=== PATIENT | female | born 1950 | race Caucasian/White ===

== ENCOUNTER 2019-09-01 21:04 | Inpatient (IN) | payer OTHER ==
[~2019-09-01] VITALS: Ht 162.6 cm; Wt 57.6 kg
[~2019-09-01 21:04] MED LIST: ACETAMINOPHEN650 M5 PO; ALBUTEROL2.5 MG/0.1 INH; LEVAQUIN 500 M500 M7 PO; NICOTINE TRANSD14 M1 TD; ORADENT 0.1% DEN5 G1 TOP; PREDNISONE 10 M10 MG PO
[2019-09-01 21:10] VITALS: BP 122/46
[2019-09-01] MEDS ORDERED: SPIRIVA RESPIMAT4 G1 (21:18)
[2019-09-01] MEDS ORDERED: ALBUTEROL2.5 MG/3 M INH (21:19)
[2019-09-01 21:30] LABS: ABSOLUTE LYMPHOCYTES 0.7 thou/uL (0.8-5.3); ABSOLUTE MONOCYTES 0.8 thou/uL (0.0-1.2); ABSOLUTE NEUTROPHILS 5.6 thou/uL (1.6-8.1); BASOPHILS 0.4 %; EOSINOPHILS 0.3 %; HEMATOCRIT 36.3 % (37.0-47.0); HEMOGLOBIN 12.2 gm/dL (12.0-15.0); LYMPHOCYTES 9.1 %; MCH 30.8 pg (26.0-34.0); MCHC 33.4 g/dL (28.0-37.0); MONOCYTES 11.8 %; MPV 6.2 fl. (7.2-11.1); NUCLEATED RBCS 0 /100WBC; PLATELET COUNT* 487 thou/uL (150-400); POLYS 78.4 %; RBC 3.95 mil/uL (4.20-5.00); RDW-CV 13.8 % (10.5-14.5); WBC 7.2 thou/uL (4.0-11.0)
[2019-09-01 21:40] LABS: INR 1.2; PROTIME 12.2 Seconds (9.20-11.50)
[2019-09-01 21:41] LABS: ANION GAP < 0 mmol/L (7-16); BUN 8 mg/dL (7-18); CALCIUM 9.1 mg/dL (8.5-10.1); CHLORIDE 91 mmol/L (98-107); CO2 41 mmol/L (21-32); CREATININE 0.3 mg/dL (0.6-1.3); GLUCOSE 87 mg/dL (70-99); SODIUM 130 mmol/L (136-145)
[2019-09-01 21:51] LABS: ALBUMIN 2.9 g/dL (3.4-5.0); ALKALINE PHOSPHATASE 254 U/L (46-116); LIPASE 1178 U/L (73-393); NT-PRO BRAIN NAT PEPTIDE 231 pg/mL (<300); SGOT 200 U/L (15-37); SGPT 38 U/L (30-65); TOTAL PROTEIN 6.8 g/dL (6.4-8.2)
[2019-09-02 01:10] VITALS: BP 95/58
[2019-09-02 01:45] LABS: URINE BLOOD 2+ (Negative); URINE CLARITY CLEAR; URINE COLOR DARK YELLOW; URINE GLUCOSE-RANDOM NEGATIVE (Negative); URINE KETONES NEGATIVE (Negative); URINE LEUKOCYTES-REFLEX NEGATIVE (Negative); URINE NITRITE-REFLEX NEGATIVE (Negative); URINE PROTEIN NEGATIVE (Negative)
[2019-09-02 01:46] LABS: URINE BILIRUBIN 1+ (Negative)
[2019-09-02 01:48] LABS: ICTOTEST (BILI CONFIRMATORY) Positive (Negative)
[2019-09-02 01:58] LABS: CASTS None Seen /LPF (None Seen); SQUAMOUS 4-10 Moderate /LPF (0-3)
[2019-09-02 01:59] LABS: BACTERIA-REFLEX 1-9 Few /HPF (None Seen); URINE WBC-REFLEX 0-5 Rare /HPF (0-5)
[2019-09-02 02:00] LABS: AMORPHOUS URATES Moderate /LPF (None Seen); URINE RBC 0-2 Rare /HPF (0-2)
[2019-09-02 08:12] VITALS: BP 118/53
[2019-09-02 11:19] LABS: AMP/METHAMP Negative (Negative); BARBITURATES Negative (Negative); BENZODIAZEPINES Negative (Negative); COCAINE Negative (Negative); METHADONE Negative (Negative); OPIATES Negative (Negative); PCP Negative (Negative); THC Negative (Negative)
[2019-09-02 12:00] VITALS: BP 111/62
[2019-09-02 14:47] LABS: CALCIUM 9.1 mg/dL (8.5-10.1); CREATININE 0.4 mg/dL (0.6-1.3); POTASSIUM 5.1 mmol/L (3.5-5.1)
--- NOTE | 2019-09-02 15:27 | EKG ---
[place] [address] ELECTROCARDIOGRAM REPORT Name: RINKU KAT Room: [address] ADM IN [facility].#: [id number] Admission: 09/01/19 Attend Phys: Alma Delia Hardy, Discharge: Date of : 52 Date of Service: 09/01/19 2157 Report #: [id number] THIS REPORT FOR: //name// [facility] ED Test Date: 2019-09-01 Test Time: 21:57:53 Pat Name: RINKU KAT Department: Room: [facility] Gender: F Clinical Resource Manager: BAN : 1950 Requested By: Emy Amor Order Number: [id number] MD: Severo Duenas Measurements Intervals [place] Rate: 126 P: 132 OK: 121 QRS: 0 QRSD: 50 T: QT: 300 QTc: 435 Interpretive Statements Sinus tachycardia Low voltage throughout Probable anterior infarct, age indeterminate Compared to ECG 07/09/2013 14:08:32 There is now low voltage throughout Electronically Signed On 09-02-2019 15:26:47 CDT by Severo Duenas [email or web address] <ELECTRONICALLY SIGNED> By: Severo Duenas MD, FAC 09/02/19 1526 2157 2157 Severo Duenas MD, FAC /EPI
[2019-09-02 16:00] VITALS: BP 112/62
--- NOTE | 2019-09-02 16:13 | 2DMMODE ---
[place] [address] 2 D/M-MODE ECHOCARDIOGRAM Name: RINKU KTA Room: [address] IN .R.#: [id number] Admission: 09/01/19 Attend Phys: Alma Delia Hardy, Discharge: Date of : 52 Date of Service: 09/02/19 1612 Report #: [id number] THIS REPORT FOR: cc: Aleisha Calix MD, Elizabeth MD Liston, Michael J. MD [facility] ~ APPROVED REPORT Study performed: 09/02/2019 10:10:33 EXAM: Comprehensive 2D, Doppler, and color-flow Echocardiogram Patient Location: In-Patient BSA: 1.61 HR: 109 bpm BP: 118/53 mmHg Other Information Study Quality: Good Indications Dyspnea 2D Dimensions IVSd: 9.41 (7-11mm) LVOT Diam: 20.26 (18-24mm) LVDd: 41.30 mm PWd: 9.52 (7-11mm) Ascending Ao: 25.79 (22-36mm) LVDs: 34.06 (25-40mm) Aortic Root: 23.86 mm Volumes Left Atrial Volume (Systole) LA ESV Index: 16.70 mL/m2 Aortic Valve AoV Peak Sb.: 1.17 m/s AO Peak Gr.: 5.43 mmHg LVOT Max P.07 mmHg AO Mean Gr.: 3.00 mmHg LVOT Mean P.97 mmHg LVOT Max V: 1.01 m/s AO V2 VTI: 19.47 cm LVOT Mean V: 0.64 m/s REED (VTI): 2.90 cm2 LVOT V1 VTI: 17.51 cm Mitral Valve E/A Ratio: 1.17 [place] [address] 2 D/M-MODE ECHOCARDIOGRAM Name: RINKU KAT Room: [address] IN .R.#: [id number] Admission: 09/01/19 Attend Phys: Alma Delia Hardy, Discharge: Date of : 52 Date of Service: 09/02/19 1612 Report #: [id number] MV Decel. Time: 130.53 ms MV E Max Sb.: 0.61 m/s MV PHT: 37.85 ms MVA (PHT): 5.81 cm2 TDI E/Lateral E': 12.20 E/Medial E': 6.10 Medial E' Sb.: 0.10 m/s Lateral E' Sb.: 0.05 m/s Pulmonary Valve PV Peak Sb.: 0.91 m/s PV Peak Gr.: 3.28 mmHg Tricuspid Valve RAP Estimate: 5.00 mmHg TR Peak Gr.: 29.27 mmHg RVSP: 34.27 mmHg PA Pressure: 34.27 mmHg Left Ventricle The left ventricle is normal size. There is normal LV segmental wall motion. There is normal left ventricular wall thickness. Left ventricular systolic function is normal. LVEF is 65-70%. Transmitral Doppler flow pattern suggests impaired LV relaxation. Right Ventricle The right ventricle is normal size. The right ventricular systolic function is normal. Atria The left atrium size is normal. The right atrium size is normal. Aortic Valve The aortic valve is normal in structure. No aortic regurgitation is present. There is no aortic valvular stenosis. Mitral Valve The mitral valve is normal in structure. Trace mitral regurgitation. No evidence of mitral valve stenosis. Tricuspid Valve The tricuspid valve is normal in structure. Trace tricuspid regurgitation. Pulmonic Valve The pulmonary valve is normal in structure[place] [address] 2 D/M-MODE ECHOCARDIOGRAM Name: NORTHRINKU Lemons Room: [address] IN [facility]#: [id number] Admission: 09/01/19 Attend Phys: Alma Delia Hardy, Discharge: Date of : 52 Date of Service: 09/02/19 1612 Report #: [id number] regurgitation. Great Vessels The aortic root is normal in size. IVC is normal in size and collapses >50% with inspiration. Pericardium Mild circumferential pericardial effusion. No echo indications of pericardial tamponade. <Conclusion> The left ventricle is normal size. There is normal left ventricular wall thickness. Left ventricular systolic function is normal. LVEF is 65-70%. Transmitral Doppler flow pattern suggests impaired LV relaxation. Trace mitral regurgitation. Trace tricuspid regurgitation. IVC is normal in size and collapses >50% with inspiration. Mild circumferential pericardial effusion. No echo indications of pericardial tamponade. <ELECTRONICALLY SIGNED> By: Severo Duenas MD, FACC 09/02/19 161 11 11 Severo Duenas MD, FACC /INF
[2019-09-02 16:31] LABS: BF RBC 27159 /mm3; TOTAL CELL COUNT 185 /mm3
[2019-09-02 16:36] LABS: BE 10.7 mmol/L (-2 to +3); PO2 95.2 mmHg (75.0-100.0)
[2019-09-02 16:39] LABS: PCO2 86.3 mmHg (35.0-45.0); pH 7.293 (7.340-7.450)
[2019-09-02 16:45] LABS: CLARITY CLOUDY; TOTAL VOLUME 1060 ml
[2019-09-02 17:06] LABS: BF LYMPHOCYTES 69 %; BF MONOCYTES 12 %; BF POLYS 19 %; BF TISSUE 3 /100 WBC
[2019-09-02 22:00] VITALS: BP 109/56
[2019-09-03] VITALS: BP 104/61
[2019-09-03 04:00] VITALS: BP 115/70
[2019-09-03 05:36] LABS: HEMATOCRIT 32.9 % (37.0-47.0); MCH 31.5 pg (26.0-34.0); MCHC 33.6 g/dL (28.0-37.0); MCV 93.9 fL (80.0-100.0); MPV 6.7 fl. (7.2-11.1); NUCLEATED RBCS 0 /100WBC; PLATELET COUNT* 467 thou/uL (150-400); RDW-CV 14.3 % (10.5-14.5); WBC 4.5 thou/uL (4.0-11.0)
[2019-09-03 05:53] LABS: PHOSPHORUS* 3.3 mg/dL (2.5-4.9)
[2019-09-03 05:56] LABS: ALBUMIN 2.7 g/dL (3.4-5.0); CALCIUM 9.2 mg/dL (8.5-10.1); CREATININE 0.5 mg/dL (0.6-1.3); POTASSIUM 5.4 mmol/L (3.5-5.1); TOTAL BILIRUBIN 0.7 mg/dL (<0.1-1.0); TOTAL PROTEIN 5.8 g/dL (6.4-8.2)
[2019-09-03 06:02] LABS: ABSOLUTE LYMPHOCYTES 0.3 thou/uL (0.8-5.3); ABSOLUTE MONOCYTES 0.1 thou/uL (0.0-1.2); ABSOLUTE NEUTROPHILS 4.1 thou/uL (1.6-8.1)
[2019-09-03 06:03] LABS: ANISOCYTOSIS 1+; PLATELET ESTIMATE INCREASED; POIKILOCYTOSIS 1+
[2019-09-03 09:05] VITALS: BP 100/53
[2019-09-03 09:13] LABS: BE 11.4 mmol/L (-2 to +3); pH 7.366 (7.340-7.450)
[2019-09-03 09:16] LABS: PCO2 70.4 mmHg (35.0-45.0); PO2 59.5 mmHg (75.0-100.0)
[2019-09-03 12:17] VITALS: BP 137/77
[2019-09-03 16:07] LABS: BODY FLUID LDH 568 IU/L (()); BODY FLUID PROTEIN 2.2 g/dL (())
[2019-09-03 17:21] VITALS: BP 116/69
[2019-09-03 20:03] VITALS: BP 117/65
[2019-09-04] VITALS: BP 105/55
[2019-09-04 04:00] VITALS: BP 115/64
[2019-09-04 05:45] LABS: ANION GAP < 0 mmol/L (7-16); BUN 15 mg/dL (7-18); CALCIUM 8.7 mg/dL (8.5-10.1); CHLORIDE 96 mmol/L (98-107); CO2 40 mmol/L (21-32); CREATININE 0.5 mg/dL (0.6-1.3); GLUCOSE 123 mg/dL (70-99); POTASSIUM 4.4 mmol/L (3.5-5.1); SODIUM 134 mmol/L (136-145)
[2019-09-04 08:00] VITALS: BP 109/42
[2019-09-04 12:00] VITALS: BP 113/63
[2019-09-04 16:00] VITALS: BP 150/85
--- NOTE | 2019-09-04 17:08 | PATH ---
[address] [address] PATHOLOGY RPT PROCEDURE Name: RINKU KAT Room: [address] IN [facility]#: [id number] Admission: 09/01/19 Date of : 52 Discharge: Report #: [id number] Path Case #: [id number] Note [facility] Accession Number: [id number] TESTS RESULT FLAG UNITS REF RANGE LAB Clinician Provided Cytology Information No. of containers..01 Other (Miscellaneous) Source: RIGHT PLEURAL DIAGNOSIS: 02 RIGHT PLEURAL INCONCLUSIVE-RARE, ISOLATED ATYPICAL CELLS OF UNCERTAIN ETIOLOGY IN BACKGROUND OF RED BLOOD CELLS AND FEW INFLAMMATORY CELLS. THIS INTERPRETATION INCLUDES EVALUATION OF A CELL BLOCK. Signed out by: 02 Laurent Olivas MD, Pathologist NPI- [id number] Performed by: 01 Nazanin Wolf, Clinical Application Manager ([facility]) Gross description: 01 60 ML, CLOUDY ORANGE, 1 TP 1 CB /LCS 09/04/2019 1153 Local FLAG LEGEND: L-Low Normal,H-High Normal,LL-Alert Low,HH-Alert High <-Panic Low,>-Panic High,A-Abnormal,AA-Critical Abnormal Performed at: [address] [place] [address] Gabriel Lanza MD, [address] [place] [phone] Laurent Olivas MD, Specimen Comment: A courtesy copy of this report has been sent to [phone] Specimen Comment: [phone], Specimen Comment: Report sent to Specimen Comment: Report sent to ,DR ABEBE / DR KUMARI Performed at: [address], [place], [place] [id number] MD Gabriel Lanza MD Phone: [phone]
[2019-09-04 20:00] VITALS: BP 150/77
[2019-09-04 23:07] LABS: BODY FLUID PH 7.6 (Not Estab.)
[2019-09-05] VITALS (7 sets, daily range): BP systolic 94–131; BP diastolic 41–72
[2019-09-05 04:53] LABS: ABSOLUTE LYMPHOCYTES 0.2 thou/uL (0.8-5.3); ABSOLUTE MONOCYTES 0.7 thou/uL (0.0-1.2); ABSOLUTE NEUTROPHILS 7.4 thou/uL (1.6-8.1); BASOPHILS 0.1 %; HEMATOCRIT 33.4 % (37.0-47.0); HEMOGLOBIN 11.1 gm/dL (12.0-15.0); LYMPHOCYTES 2.5 %; MCH 31.2 pg (26.0-34.0); MCHC 33.3 g/dL (28.0-37.0); MONOCYTES 8.8 %; MPV 6.6 fl. (7.2-11.1); NUCLEATED RBCS 0 /100WBC; PLATELET COUNT* 404 thou/uL (150-400); POLYS 88.6 %; RBC 3.56 mil/uL (4.20-5.00); RDW-CV 14.1 % (10.5-14.5); WBC 8.4 thou/uL (4.0-11.0)
[2019-09-05 05:08] LABS: ANION GAP < 0 mmol/L (7-16); BUN 13 mg/dL (7-18); CALCIUM 8.8 mg/dL (8.5-10.1); CHLORIDE 96 mmol/L (98-107); CO2 41 mmol/L (21-32); CREATININE 0.3 mg/dL (0.6-1.3); GLUCOSE 125 mg/dL (70-99); MAGNESIUM 1.9 mg/dL (1.8-2.4); POTASSIUM 4.7 mmol/L (3.5-5.1); SODIUM 135 mmol/L (136-145)
[2019-09-05 11:08] LABS: % SATURATION 16 % (20-39); IRON 36 ug/dL (50-175)
[2019-09-06] VITALS: BP 118/67
[2019-09-06 04:00] VITALS: BP 131/82
[2019-09-06 04:18] LABS: ABSOLUTE LYMPHOCYTES 0.2 thou/uL (0.8-5.3); ABSOLUTE MONOCYTES 0.7 thou/uL (0.0-1.2); ABSOLUTE NEUTROPHILS 7.9 thou/uL (1.6-8.1); BASOPHILS 0.1 %; HEMATOCRIT 33.5 % (37.0-47.0); HEMOGLOBIN 11.1 gm/dL (12.0-15.0); LYMPHOCYTES 2.2 %; MCH 31.4 pg (26.0-34.0); MCHC 33.2 g/dL (28.0-37.0); MCV 94.6 fL (80.0-100.0); MONOCYTES 8.1 %; MPV 6.5 fl. (7.2-11.1); NUCLEATED RBCS 0 /100WBC; PLATELET COUNT* 364 thou/uL (150-400); POLYS 89.6 %; RBC 3.54 mil/uL (4.20-5.00); RDW-CV 14.5 % (10.5-14.5); WBC 8.8 thou/uL (4.0-11.0)
[2019-09-06 04:52] LABS: PHOSPHORUS* 3.6 mg/dL (2.5-4.9)
[2019-09-06 04:55] LABS: ALBUMIN 2.6 g/dL (3.4-5.0); ALKALINE PHOSPHATASE 227 U/L (46-116); ANION GAP < 0 mmol/L (7-16); BUN 14 mg/dL (7-18); CALCIUM 9.2 mg/dL (8.5-10.1); CHLORIDE 95 mmol/L (98-107); CO2 41 mmol/L (21-32); CREATININE 0.4 mg/dL (0.6-1.3); GLUCOSE 118 mg/dL (70-99); SGOT 177 U/L (15-37); SGPT 41 U/L (30-65); SODIUM 135 mmol/L (136-145); TOTAL BILIRUBIN 0.5 mg/dL (<0.1-1.0); TOTAL PROTEIN 5.8 g/dL (6.4-8.2)
[2019-09-06 08:00] VITALS: BP 105/56
[2019-09-06 12:10] VITALS: BP 118/60
[2019-09-06 14:07] LABS: BODY FLUID LDH 393 IU/L (()); BODY FLUID PROTEIN 1.3 g/dL (())
[2019-09-06 16:50] VITALS: BP 125/76
[2019-09-06 20:00] VITALS: BP 140/72
[2019-09-07] VITALS: BP 131/74
[2019-09-07 04:00] VITALS: BP 140/60
[2019-09-07 04:20] LABS: HEMATOCRIT 33.6 % (37.0-47.0); MCH 31.1 pg (26.0-34.0); MCHC 32.8 g/dL (28.0-37.0); MCV 94.7 fL (80.0-100.0); RBC 3.55 mil/uL (4.20-5.00); RDW-CV 14.5 % (10.5-14.5); WBC 8.3 thou/uL (4.0-11.0)
[2019-09-07 04:38] LABS: ALBUMIN 2.6 g/dL (3.4-5.0); CALCIUM 9.1 mg/dL (8.5-10.1); CREATININE 0.4 mg/dL (0.6-1.3); POTASSIUM 4.9 mmol/L (3.5-5.1); TOTAL BILIRUBIN 0.5 mg/dL (<0.1-1.0); TOTAL PROTEIN 5.7 g/dL (6.4-8.2)
[2019-09-07 08:00] VITALS: BP 106/39
[2019-09-07 12:20] VITALS: BP 130/66
[2019-09-07 16:02] LABS: SOURCE PLEURAL
[2019-09-07 16:02] LABS: SOURCE PLEURAL
[2019-09-07 16:03] VITALS: BP 144/73
[2019-09-07 20:00] VITALS: BP 115/52
--- NOTE | 2019-09-07 21:46 | CON ---
[address] [address] CONSULTATION Name: PRAKASHCELSARINKU Room: [address] IN .R.#: [id number] Admission: 09/01/19 Attend Phys: Alma Delia Hardy MD Discharge: Date of : 52 Report #: [id number] THIS REPORT FOR: //name// cc: Aleisha Calix MD, Elizabeth MD ~ THIS REPORT FOR: //name// CC: Aleisha Hardy DATE OF SERVICE: 09/02/2019 REQUESTING PHYSICIAN: Consult has been requested by Dr. Hardy. INDICATION FOR CONSULTATION: Shortness of breath and pleural effusion. HISTORY OF PRESENT ILLNESS: This is a 69-year-old female who has a history of oxygen-dependent COPD. The patient has not been on long-term prednisone. The patient also has not been on a long-term positive airway pressure device. She does have an extensive history of smoking. The patient is now admitted with increasing shortness of breath for the last 1 week. She also reports having had a dry cough, but there is not much sputum production. The patient does report that she has been constipated. While the patient did complain that she had swelling of her feet as described below, it is my impression that she is not dehydrated. The patient did complain of nausea and has had significant constipation recently. She does not have calf pain. She has not had fever, chills, or sweats. She is not complaining of heartburn at this time. The patient does state that she is bloated, she is weak, she has been losing weight and she has had a poor appetite. REVIEW OF SYSTEMS: For 14 points is negative except as mentioned above. PAST MEDICAL AND SURGICAL HISTORY: COPD, the patient is oxygen dependent, has not been on a long-term positive airway pressure device, has not been on long-term prednisone. Rectal surgery, tonsillectomy, D and C. There is mention of vein surgery on bilateral lower extremities, likely this refers to varicose veins. There is a questionable history of congestive heart failure. SOCIAL HISTORY: She has an extensive history of smoking 1-2 packs a day. She says that she smoked for several decades and discontinued around 8 or 9 months ago. There is no known history of heavy alcohol use or illegal drug use. CURRENT MEDICATIONS: The list is in [employer], reviewed. HOME MEDICATIONS: The list is in [employer], [place] [address] CONSULTATION Name: RINKU KAT Room: [address]#: [id number] Admission: 09/01/19 Attend Phys: Alma Delia Hardy MD Discharge: Date of : 52 Report #: [id number] ALLERGIES: CODEINE AND PROPOXYPHENE ARE MENTIONED ALLERGIES. FAMILY HISTORY: Cancer and heart disease. PHYSICAL EXAMINATION: GENERAL: She is alert, awake, and oriented. She does appear to have shortness of breath at rest, even though respiratory rate was only around 20. VITAL SIGNS: She has a pulse of 109 and a blood pressure of 111/62. She is oxygenating 97%. She is on 4 liters nasal cannula. She is afebrile with a temperature of 36.4 this morning. Her body mass index is decreased to 21.8. HEENT: Head is normocephalic and atraumatic. Pupils are equal and reactive. There is no throat erythema. There is no thrush in her throat. NECK: Does not show raised JVP, asymmetry, mass, or lymph nodes. CHEST: Symmetrical expansion on inspection and palpation. On auscultation, breath sounds are decreased bilaterally. Breath sounds are in fact particularly decreased at the right lung base. HEART: Regular. There is mild tachycardia. There is no murmur. ABDOMEN: Mildly distended, but nontender. EXTREMITIES: Lower extremities showed no edema, no calf tenderness. SKIN: Dry and intact. NEUROLOGICAL: Moves all extremities bilaterally equally and spontaneously with no focal deficit identified. IMAGING: The patient's CTA chest films as well as report are reviewed. I in fact called and discussed with Dr. Houser, the radiologist, as well. There is a loculated pleural effusion on the right side. There is associated atelectasis and pulmonary infiltrates on the right side. There is an enlarged thyroid mass, which is deviating the trachea. There is significant lymphadenopathy on the right side noted. There are no masses in the liver. CT of the abdomen and pelvis report is also reviewed. The patient does have a small pleural effusion on the left side as well. Also, there are findings consistent with significant COPD on the CT chest. LABORATORY DATA: The patient's chemistries are significant from last night for a BUN decreased to 8. Sodium is 130. Lipase is elevated to 1178. The patient's CBC also in [facility], reviewed. The patient's lactate is not elevated, it is 1.4. The patient did have a TSH level performed this morning. I requested a basic metabolic profile added to this. This is pending at this time. ASSESSMENT/PLAN: 1. Acute on chronic hypoxemic respiratory failure. The patient's bicarbonate is elevated to 41 from last night. Therefore, I suspect that there may be significant hypercarbia present as well. I would therefore recommend proceeding to an arterial blood gas to evaluate this further and also to assess the extent of the acute component. Unfortunately, the findings on her CAT scans are [facility] [address] [place] [address] CONSULTATION Name: MICHAEL KATBehzad Lemons Room: [address] IN M.R.#: [id number] Admission: 09/01/19 Attend Phys: Alma Delia Hardy MD Discharge: Date of : 52 Report #: [id number] suspicious of a widespread malignancy. The etiology of the patient's deterioration during the last 1 week, however, does need to be defined further. It will be possible for the patient to have pneumonia in the right lower lobe. The possibility of COVID-19 also does need to be ruled out for this reason. 2. Loculated pleural effusion/hepatic masses/thyroid mass. Unfortunately, the findings are consistent with a widespread malignancy. The hospitalist service has ordered a thoracentesis today. I agree with proceeding with the same. Down the line if it is possible to drain this pleural effusion via thoracentesis, then we may consider a PleurX catheter as well. In case the cytology on the pleural fluid does not lead to a definite diagnosis, then we may need additional tissue for a definite diagnosis. While a bronchoscopy with an endobronchial ultrasound could subsequently be considered, at first glance it appears to me that it may be a lower risk to the patient to biopsy one of her liver masses and therefore down the line I intend to discuss this with the Interventional Radiology service. Also, we will plan to review with Interventional Radiology and consider biopsy of the thyroid mass. This should be relatively easy to biopsy with ultrasound; however, this may be a separate process and not related to her suspected widespread malignancy. For now, I will go ahead and obtain a thyroid ultrasound. 3. Chronic obstructive pulmonary disease exacerbation. I ordered Solu-Medrol as well as nebulized bronchodilators. 4. Pulmonary infiltrate with atelectasis/rule out COVID-19. Ordered cultures as well as ceftriaxone. COVID-19 screen and MRSA screen are also ordered. Also requested isolation until COVID-19 screen is back. 5. Hyponatremia. It is possible that the patient has underlying syndrome of inappropriate antidiuretic hormone secretion secondary to her underlying malignancy, which is for this reason that even though I do not feel that she is dehydrated, I in fact did not change the order for normal saline. It is, however, noted that due to her severe chronic obstructive pulmonary disease, the patient is likely to have limited tolerance to fluid overload and therefore we will watch her fluid status closely and if she becomes fluid overloaded, then we will have a low tendency to also administer furosemide at the same time. I would also like to look at the right heart pressures as well as the left ventricular ejection fraction and it is for this reason that I have ordered an echocardiogram as well. 6. Evaluation for site of primary malignancy. The Hematology/Oncology service is also on the case. Note that the patient does have a large thyroid mass; however, it is possible that this is a separate process. Certainly, there could be a mass in the right hilum. The patient does have a history of constipation and therefore the possibility of colon malignancy also needs to be considered. 7. Pancreatitis/elevated lipase. We would defer followup mainly to the primary service. Therapy may be primarily supportive. [address] [address] CONSULTATION Name: RINKU KAT Room: [facility] IN [facility].#: [id number] Admission: 09/01/19 Attend Phys: Alma Delia Hardy MD Discharge: Date of : 52 Report #: [id number] Thanks for this consultation. <ELECTRONICALLY SIGNED> By: Nito Lopez MD 09/07/19 2146 1454 1919Aotto Lopez MD /nt
[2019-09-08] VITALS: BP 129/57
[2019-09-08 04:00] VITALS: BP 125/74
[2019-09-08 05:56] LABS: HEMATOCRIT 35.1 % (37.0-47.0); HEMOGLOBIN 11.5 gm/dL (12.0-15.0); MCH 30.8 pg (26.0-34.0); MCHC 32.7 g/dL (28.0-37.0); MCV 94.1 fL (80.0-100.0); MPV 7.3 fl. (7.2-11.1); NUCLEATED RBCS 0 /100WBC; PLATELET COUNT* 342 thou/uL (150-400); RBC 3.73 mil/uL (4.20-5.00); RDW-CV 14.7 % (10.5-14.5); WBC 8.8 thou/uL (4.0-11.0)
[2019-09-08 06:11] LABS: PHOSPHORUS* 3.7 mg/dL (2.5-4.9)
[2019-09-08 06:14] LABS: ALBUMIN 2.6 g/dL (3.4-5.0); ALKALINE PHOSPHATASE 246 U/L (46-116); ANION GAP < 0 mmol/L (7-16); BUN 15 mg/dL (7-18); CALCIUM 8.9 mg/dL (8.5-10.1); CHLORIDE 94 mmol/L (98-107); CO2 43 mmol/L (21-32); CREATININE 0.3 mg/dL (0.6-1.3); GLUCOSE 93 mg/dL (70-99); MAGNESIUM 2.3 mg/dL (1.8-2.4); POTASSIUM 5.4 mmol/L (3.5-5.1); SGOT 251 U/L (15-37); SGPT 54 U/L (30-65); SODIUM 135 mmol/L (136-145); TOTAL BILIRUBIN 0.6 mg/dL (<0.1-1.0); TOTAL PROTEIN 5.7 g/dL (6.4-8.2)
[2019-09-08 07:19] LABS: ABSOLUTE LYMPHOCYTES 0.4 thou/uL (0.8-5.3); ABSOLUTE MONOCYTES 0.4 thou/uL (0.0-1.2); METAMYELOCYTES 2 %; MYELOCYTES 1 %; PLATELET ESTIMATE ADEQUATE
[2019-09-08 08:00] VITALS: BP 105/69
[2019-09-08 10:28] LABS: BE 16.8 mmol/L (-2 to +3); PO2 68.4 mmHg (75.0-100.0); pH 7.387 (7.340-7.450)
[2019-09-08 10:33] LABS: PCO2 77.6 mmHg (35.0-45.0)
[2019-09-08 12:00] VITALS: BP 112/62
[2019-09-08 16:00] VITALS: BP 108/48
[2019-09-08 20:00] VITALS: BP 143/64
[2019-09-09] VITALS (7 sets, daily range): BP systolic 98–130; BP diastolic 36–76
[2019-09-09 07:17] LABS: ABSOLUTE LYMPHOCYTES 0.3 thou/uL (0.8-5.3); ABSOLUTE MONOCYTES 0.8 thou/uL (0.0-1.2); ABSOLUTE NEUTROPHILS 9.7 thou/uL (1.6-8.1); BASOPHILS 0.2 %; HEMATOCRIT 35.4 % (37.0-47.0); HEMOGLOBIN 11.6 gm/dL (12.0-15.0); LYMPHOCYTES 2.6 %; MCH 30.7 pg (26.0-34.0); MCHC 32.6 g/dL (28.0-37.0); MCV 94.1 fL (80.0-100.0); MONOCYTES 7.1 %; MPV 7.4 fl. (7.2-11.1); NUCLEATED RBCS 0 /100WBC; PLATELET COUNT* 355 thou/uL (150-400); POLYS 90.1 %; RBC 3.76 mil/uL (4.20-5.00); RDW-CV 14.7 % (10.5-14.5); WBC 10.8 thou/uL (4.0-11.0)
[2019-09-09 08:05] LABS: ALBUMIN 2.5 g/dL (3.4-5.0); ALKALINE PHOSPHATASE 228 U/L (46-116); BUN 20 mg/dL (7-18); CALCIUM 9.3 mg/dL (8.5-10.1); CHLORIDE 93 mmol/L (98-107); CREATININE 0.4 mg/dL (0.6-1.3); GLUCOSE 111 mg/dL (70-99); MAGNESIUM 2.2 mg/dL (1.8-2.4); SGOT 192 U/L (15-37); SGPT 55 U/L (30-65); SODIUM 136 mmol/L (136-145); TOTAL BILIRUBIN 0.7 mg/dL (<0.1-1.0); TOTAL PROTEIN 5.7 g/dL (6.4-8.2)
[2019-09-09 08:06] LABS: POTASSIUM 4.2 mmol/L (3.5-5.1)
[2019-09-09 08:08] LABS: CO2 > 45 mmol/L (21-32)
[2019-09-10] VITALS (24 sets, daily range): BP systolic 89–123; BP diastolic 24–63
[2019-09-10 04:53] LABS: HEMATOCRIT 36.5 % (37.0-47.0); HEMOGLOBIN 11.7 gm/dL (12.0-15.0); MCH 30.6 pg (26.0-34.0); MCHC 32.2 g/dL (28.0-37.0); MCV 95.1 fL (80.0-100.0); MPV 7.4 fl. (7.2-11.1); RBC 3.84 mil/uL (4.20-5.00); RDW-CV 14.7 % (10.5-14.5); WBC 12.1 thou/uL (4.0-11.0)
[2019-09-10 05:16] LABS: ALBUMIN 2.7 g/dL (3.4-5.0); CALCIUM 9.3 mg/dL (8.5-10.1); CREATININE 0.5 mg/dL (0.6-1.3); MAGNESIUM 2.3 mg/dL (1.8-2.4); POTASSIUM 4.3 mmol/L (3.5-5.1); TOTAL BILIRUBIN 0.6 mg/dL (<0.1-1.0); TOTAL PROTEIN 5.9 g/dL (6.4-8.2)
[2019-09-10 08:17] LABS: BE 17.9 mmol/L (-2 to +3); PO2 61.6 mmHg (75.0-100.0); pH 7.363 (7.340-7.450)
[2019-09-10 08:19] LABS: PCO2 85.4 mmHg (35.0-45.0)
[2019-09-10 12:30] LABS: ABSOLUTE LYMPHOCYTES 0.2 thou/uL (0.8-5.3); ABSOLUTE MONOCYTES 0.7 thou/uL (0.0-1.2); ABSOLUTE NEUTROPHILS 11.6 thou/uL (1.6-8.1); BASOPHILS 0.2 %; EOSINOPHILS 0.2 %; HEMATOCRIT 36.7 % (37.0-47.0); HEMOGLOBIN 11.9 gm/dL (12.0-15.0); LYMPHOCYTES 1.2 %; MCH 30.8 pg (26.0-34.0); MCHC 32.5 g/dL (28.0-37.0); MCV 94.7 fL (80.0-100.0); MONOCYTES 5.6 %; MPV 7.4 fl. (7.2-11.1); NUCLEATED RBCS 0 /100WBC; PLATELET COUNT* 320 thou/uL (150-400); POLYS 92.8 %; RBC 3.87 mil/uL (4.20-5.00); RDW-CV 14.9 % (10.5-14.5); WBC 12.5 thou/uL (4.0-11.0)
[2019-09-10 12:46] LABS: ALBUMIN 2.6 g/dL (3.4-5.0); ALKALINE PHOSPHATASE 241 U/L (46-116); BUN 26 mg/dL (7-18); CALCIUM 9.5 mg/dL (8.5-10.1); CHLORIDE 95 mmol/L (98-107); CREATININE 0.5 mg/dL (0.6-1.3); GLUCOSE 112 mg/dL (70-99); LIPASE 897 U/L (73-393); MAGNESIUM 2.3 mg/dL (1.8-2.4); PHOSPHORUS* 3.6 mg/dL (2.5-4.9); POTASSIUM 4.4 mmol/L (3.5-5.1); SGOT 189 U/L (15-37); SGPT 82 U/L (30-65); SODIUM 139 mmol/L (136-145); TOTAL BILIRUBIN 0.5 mg/dL (<0.1-1.0); TOTAL PROTEIN 5.9 g/dL (6.4-8.2)
[2019-09-10 12:47] LABS: CO2 > 45 mmol/L (21-32)
--- NOTE | 2019-09-10 13:08 | PATH ---
[address] [address] PATHOLOGY RPT PROCEDURE Name: RINKU KAT Room: [address] IN [facility]#: [id number] Admission: 09/01/19 Date of : 52 Discharge: Report #: [id number] Path Case #: [id number] Note [facility] Accession Number: [id number] TESTS RESULT FLAG UNITS REF RANGE LAB Clinician Provided Cytology Information No. of containers..01 Other (Miscellaneous) Source: RT PLEURAL FLUID DIAGNOSIS: RT PLEURAL FLUID INCONCLUSIVE. RARE ATYPICAL CELLS, SUSPICIOUS FOR MALIGNANCY WITH BACKGROUND OF REACTIVE MESOTHELIAL CELLS AND BLOOD. CELLULAR DEGENERATION IS PRESENT. SEE COMMENT. THIS INTERPRETATION INCLUDES EVALUATION OF A CELL BLOCK. COMMENT: SIMILAR RARE ATYPICAL CELLS ARE SEEN, SIMILAR TO THOSE EVALUATED WITH IHC IN THE RECENT PRIOR PLEURAL FLUID, [id number]. Signed out by: 02 Laurent Olivas MD, Pathologist NPI- [id number] Performed by: 01 Toya Cai, Explosive Operator ([facility]) Gross description: 01 45ML, CLOUDY RED, 1TP 1CB /LCS 09/08/2019 0528 Local FLAG LEGEND: L-Low Normal,H-High Normal,LL-Alert Low,HH-Alert High <-Panic Low,>-Panic High,A-Abnormal,AA-Critical Abnormal Performed at: [address] [address] Gabriel Lanza MD, [address] [place] [address] [address] [place] [address] Laurent Olivas MD, Specimen Comment: A courtesy copy of this report has been sent to [phone] Specimen Comment: [phone] Specimen Comment: Report sent to / DR KUMARI Specimen Comment: Report sent to Performed at: [address], [place], [place] [id number] MD Gabriel Lanza MD Phone: [phone]
--- NOTE | 2019-09-10 13:08 | PATH ---
[address] [address] PATHOLOGY RPT PROCEDURE Name: RINKU KAT Room: [address] IN [facility]#: [id number] Admission: 09/01/19 Date of : 52 Discharge: Report #: [id number] Path Case #: [id number] Note [facility] Accession Number: [id number] TESTS RESULT FLAG UNITS REF RANGE LAB Clinician Provided Cytology Information No. of containers..01 Other (Miscellaneous) Source: PLEURAL FLUID DIAGNOSIS: 02 PLEURAL FLUID (SIDE NOT SPECIFIED). INCONCLUSIVE - FEW GENERALLY ISOLATED ATYPICAL CELLS SUSPICIOUS FOR MALIGNANCY IN BACKGROUND OF BLOOD AND FEW INFLAMMATORY CELLS. SEE COMMENT. THIS INTERPRETATION INCLUDES EVALUATION OF A CELL BLOCK. COMMENT: SIMILAR TO THE RECENT PRIOR PLEURAL FLUID ([id number]), A FEW ATYPICAL CELLS ARE PRESENT IN SLIGHTLY GREATER NUMBERS, GENERALLY SEEN SINGLY AND RARELY IN AGGREGATION. AVAILABLE, VALIDATED PROPERLY CONTROLLED IMMUNOHISTOCHEMICAL STUDIES ARE PERFORMED ON THE CELL BLOCK AND SHOW THE FOLLOWING RESULTS IN THE ATYPICAL CELLS: TTF-1: NUCLEAR POSITIVE CK5/6: NEGATIVE; HIGHLIGHTS MESOTHELIAL CELLS CHROMOGRANIN: NEGATIVE SYNAPTOPHYSIN: POSITIVE AE1/AE3: RARE POSITIVE; ALSO HIGHLIGHTS MESOTHELIAL CELLS CAUTION IS WARRANTED IN INTERPRETATION OF THESE FINDINGS DUE TO THE VERY FEW ATYPICAL CELLS PRESENT. THE FINDINGS OF A LARGE RIGHT THYROID MASS, LARGE RIGHT PARATRACHEAL MASS AND MULTIPLE LESIONS IN THE LIVER ON CT CHEST WITH CONTRAST DATED 09/07/2019 ARE NOTED. THE ATYPICAL CELLS AND IN PARTICULAR WITH THE IMMUNOHISTOCHEMICAL STUDIES RAISE A CONCERN FOR BRONCHOGENIC SMALL CELL OR THYROID MALIGNANCY. REVIEWED WITH DR. BRIDGETTE WILLIS, WHO AGREES WITH THE DIAGNOSIS. DISCUSSED PRELIMINARY FINDINGS WITH DR. VITAL ON AFTERNOON OF 09/09/[address] DEVONTE HOSKINS ON AM OF 09/10/2019. . Diagnosis provided b 02 Laurent Olivas MD, Pathologist NPI- [id number] Signed out by: 03 Laurent Olivas MD, Pathologist NPI- [id number] Performed by: 01 Nazanin Wolf, Hospital Clerk ([facility]) Gross description: 01 10ML, CLOUDY RED, 1TP 1CB /LCS 09/09/2019 1059 Local FLAG LEGEND: [place] [address] PATHOLOGY RPT PROCEDURE Name: MICHAEL KATBehzad Lemons Room: [address] IN .R.#: [id number] Admission: 09/01/19 Date of : 52 Discharge: Report #: [id number] Path Case #: [id number] L-Low Normal,H-High Normal,LL-Alert Low,HH-Alert High <-Panic Low,>-Panic High,A-Abnormal,AA-Critical Abnormal Performed at: [address] [place] [address] Gabriel Lanza MD, [address] [address] [place] [address] Laurent Olivas MD, 03 [facility] [address] [place] [address] Laurent Olivas MD, Specimen Comment: A courtesy copy of this report has been sent to [phone] Specimen Comment: Report sent to / DR YIN Performed at: [address], [place], [place] [id number] MD Gabriel Lanza MD Phone: [phone]
[2019-09-10 17:01] LABS: BE 17.1 mmol/L (-2 to +3); PO2 68.1 mmHg (75.0-100.0); pH 7.402 (7.340-7.450)
[2019-09-10 17:04] LABS: PCO2 74.5 mmHg (35.0-45.0)
[2019-09-11] VITALS (17 sets, daily range): BP systolic 53–114; BP diastolic 15–57
[2019-09-11 05:46] LABS: HEMATOCRIT 31.4 % (37.0-47.0); HEMOGLOBIN 10.3 gm/dL (12.0-15.0); MCH 31.2 pg (26.0-34.0); MCHC 32.7 g/dL (28.0-37.0); MCV 95.2 fL (80.0-100.0); MPV 7.2 fl. (7.2-11.1); NUCLEATED RBCS 0 /100WBC; PLATELET COUNT* 262 thou/uL (150-400); RDW-CV 14.5 % (10.5-14.5); WBC 9.9 thou/uL (4.0-11.0)
[2019-09-11 05:54] LABS: ALBUMIN 2.1 g/dL (3.4-5.0); ALKALINE PHOSPHATASE 178 U/L (46-116); ANION GAP < 0 mmol/L (7-16); BUN 24 mg/dL (7-18); CALCIUM 8.4 mg/dL (8.5-10.1); CHLORIDE 101 mmol/L (98-107); CO2 43 mmol/L (21-32); CREATININE 0.4 mg/dL (0.6-1.3); GLUCOSE 93 mg/dL (70-99); POTASSIUM 4.7 mmol/L (3.5-5.1); SGOT 190 U/L (15-37); SGPT 64 U/L (30-65); SODIUM 140 mmol/L (136-145); TOTAL BILIRUBIN 0.5 mg/dL (<0.1-1.0); TOTAL PROTEIN 4.6 g/dL (6.4-8.2)
[2019-09-11 06:23] LABS: ABSOLUTE LYMPHOCYTES 0.8 thou/uL (0.8-5.3); ABSOLUTE MONOCYTES 0.4 thou/uL (0.0-1.2); ABSOLUTE NEUTROPHILS 8.7 thou/uL (1.6-8.1); PLATELET ESTIMATE ADEQUATE
[2019-09-11 08:08] LABS: BE 9.9 mmol/L (-2 to +3)
[2019-09-11 08:10] LABS: PCO2 83.4 mmHg (35.0-45.0); PO2 49.6 mmHg (75.0-100.0)
--- NOTE | 2019-09-11 11:46 | CON ---
[address] [address] CONSULTATION Name: RINKU KAT Room: [address] IN .R.#: [id number] Admission: 09/01/19 Attend Phys: Alma Delia Hardy MD Discharge: Date of : 52 Report #: [id number] THIS REPORT FOR: //name// cc: Aleisha Calix MD, Elizabeth MD ~ THIS REPORT FOR: //name// CC: Aleisha Hardy DATE OF SERVICE: 09/10/2019 INFECTIOUS DISEASE CONSULTATION ATTENDING PHYSICIAN: Dr. Hardy. REASON FOR EVALUATION: Recommendations for antibiotic therapy. 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 HISTORY OF PRESENT ILLNESS: Chart reviewed, patient examined. This is a 69-year-old was admitted through the Emergency Room with complaints of progressive dyspnea. It is notable she is on supplemental oxygen normally due to history of chronic obstructive lung disease, has extended history of smoking cigarettes. The evaluation was undertaken including multiple images which showed what appeared to be a paratracheal mass, multiple lesions consistent with metastases in the chest as well as the abdomen, did undergo thoracentesis early on and now apparently suggests a small cell carcinoma, had developed a pneumothorax that required a chest tube placement on the right as well due to worsening respiratory situation. She is now on BiPAP. She is vjax-cf-lxxttmwiut encephalopathic. It is hard to redirect her. She just wants water ice chips, which at this point has been not available to her. She has been on empiric therapy including ceftriaxone for suspected pneumonitis, has had extensive culturing including the blood on a couple of occasions. Pleural fluid thus far have been unrevealing. Medications were adjusted, now on vancomycin and levofloxacin. She has not had any recent fevers. ALLERGIES: CODEINE, PROPOXYPHENE. CURRENT MEDICATIONS: Include vancomycin, lactulose, pantoprazole, methylprednisolone, ipratropium and albuterol inhaler, levalbuterol, insulin sliding scale, dexmedetomidine, levofloxacin. PAST MEDICAL HISTORY: As noted above, history of cardiomyopathy with congestive heart failure, O2 requiring COPD, previous tonsillect[place] [address] CONSULTATION Name: MARITAALEXRINKU Room: [address] IN [facility]#: [id number] Admission: 09/01/19 Attend Phys: Alma Delia Hardy MD Discharge: Date of : 52 Report #: [id number] SOCIAL HISTORY: Extensive smoking history. No significant ethanol or illicit drug use. FAMILY HISTORY: Noncontributory. REVIEW OF SYSTEMS: Minimal responses to specific questions. PHYSICAL EXAMINATION: GENERAL: She appears chronically ill, undernourished, in moderate to marked respiratory distress, has a BiPAP in place, who is chronically undernourished. VITAL SIGNS: Temperature 98.1, pulse 117, respirations 18, blood pressure 101/49. SKIN: Warm, dry, no rashes. HEENT: Appears to be supple. Extraocular muscles intact. BiPAP mask in place. LUNGS: Scattered coarse breath sounds, diminished. HEART: Tachycardic, appears to be regular. ABDOMEN: Appears to have a hard mass not particularly tender. GENITOURINARY AND RECTAL: Deferred. LABORATORY DATA: Electrolytes: Sodium 139, potassium 4.4, chloride 95, bicarbonate is greater than 45. Bun and creatinine 28 and 0.5, glucose of 112. AST of 189, ALT of 82. Total bilirubin of 0.5, lipase 897. CBC: White count of 12.5, H and H 11.9 and 36.7, platelets of 320. ABGs: pH 7.363, pCO2 of 85.4, pO2 of 61.6, pH of the pleural fluid was 7.6. Prealbumin 11.2. Review of the list of cultures was otherwise unrevealing. 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 She is critically ill at this point, it is not clear if she is a candidate for additional intervention from a Oncology standpoint. We will continue combination therapy at this point. Vancomycin, levofloxacin is a reasonable combination to see how she does clinically. At this point, she would deteriorate, may repeat cultures. At this point, it is not clear if she has got a focus of pyogenic infection. Discussed with Dr. Lopez as well as Dr. Berumen. <ELECTRONICALLY SIGNED> By: Juan Ramon Castillo MD 09/11/19 1146 1349 [id number] Ramon Castillo MD /nt
--- NOTE | 2019-09-11 17:07 | PATH ---
[address] [address] PATHOLOGY RPT PROCEDURE Name: TASHA KAT Room: [address] IN .R.#: [id number] Admission: 09/01/19 Date of : 52 Discharge: Report #: [id number] Path Case #: [id number] [facility] Accession Number: [id number] . 01 Material submitted: . liver - LIVER BIOPSY . 01 Clinical history: . Dyspnea, pleural effusion, mediastinal mass, hypon . 02 Diagnosis: Liver - necrotic mass, image-guided biopsy: - SMALL CELL CARCINOMA INVOLVING LIVER TISSUE. (SEE COMMENT) . (ANASTACIO:dawson; 09/11/2019) [facility] 09/11/2019 1020 Local . 02 Comment: The biopsy shows large aggregates of malignant small cells, without keratinization, terese formation or gland formation, having ovoid nuclei without nucleoli and with minimal cytoplasm. A panel of properly-controlled immunohistochemical studies performed on A1 show the neoplastic cells to have the following characteristics, supporting the classification: . TTF-1: Mostly negative-rare nuclear positive Synaptophysin: Positive Chromogranin: Negative CD56: Positive LCA: Negative CK7: Negative CK20: Negative Keratin AE1/AE3: Negative Keratin JUAN FRANCISCO: Positive . Although unable to confirm, the malignancy is compatible with a bronchogenic primary. . Reviewed with Dr. Luana Quinonez, who agrees with the diagnosis. . Preliminary findings discussed with Dr. Berumen at approximately 10:25 on 09/10/2019. . (ANASTACIO:mmcat; 09/11/2019) . 02 Electronically signed: . Laurent Olivas MD, [place] [address] PATHOLOGY RPT PROCEDURE Name: TASHA KAT Vesta Room: [address] IN [facility]#: [id number] Admission: 09/01/19 Date of : 52 Discharge: Report #: [id number] Path Case #: [id number]- [id number] . 01 Gross description: . The specimen is received in formalin, labeled "Tasha Kat, liver-necrotic mass" and consists of multiple fry needle cores measuring from 0.3-0.6 cm in length and 0.1 cm in diameter. They are entirely submitted in A1. (SLOAN; 09/09/2019) JFQ/JFQ 09/09/2019 1855 [facility] . 02 Pathologist provided ICD-10: C22.9 . 02 CPT . 944513, [id number], [id number] Specimen Comment: A courtesy copy of this report has been sent to [phone] Specimen Comment: [id number], Specimen Comment: Report sent to DR YIN, DR BARILLAS,DR ABEBE Specimen Comment: DR KUMARI Performed at: 01 [facility] [address], [place], [place] [id number] MD Gabriel Lanza MD Phone: [phone] Performed at: [address] [facility] [address] [place], [place] [id number] MD Laurent Olivas MD Phone: [phone]
[2019-09-12] VITALS: BP 96/54
[2019-09-12 02:00] VITALS: BP 87/39
[2019-09-12 04:00] VITALS: BP 87/17
--- NOTE | 2019-09-12 08:58 | CON ---
[address] [address] CONSULTATION Name: RINKU KAT Room: [address] IN [facility]#: [id number] Admission: 09/01/19 Attend Phys: Alma Delia Hardy MD Discharge: Date of : 52 Report #: [id number] THIS REPORT FOR: //name// cc: Aleisha Calix MD, Elizabeth MD ~ THIS REPORT FOR: //name// CC: Aleisha Hardy DATE OF SERVICE: 09/10/2019 SUBJECTIVE: She has complaints of shortness of breath. She is in ICU, but she is able to answer questions appropriately. She does not have complaints of pain. She admits that she has been losing weight. She had lost about 10 pounds over last month or 2. She has complaints of being thirsty. OBJECTIVE: VITAL SIGNS: Blood pressure 101/49, heart rate is 88, temperature 98.0, respirations 32. She is on BiPAP. HEART: Normal S1, S2. LUNGS: Coarse. ABDOMEN: Somewhat distended and tender diffusely. MENTAL STATUS: Alert and oriented x 3. LABORATORY DATA: Sodium 137, potassium 4.3, BUN 26, bicarbonate more than 32, creatinine 0.5, AST 189, ALT 241, alkaline phosphatase 241. Pathology reports, small cell lung cancer. ASSESSMENT AND PLAN: Extensive stage small cell lung cancer. I have discussed prognosis and options with the patient and her . I explained that she has aggressive lung cancer. Life expectancy prognosis is very poor. She is not a candidate for extensive chemotherapy, intensive chemotherapy. I discussed with her options of chemotherapy. If she wants to consider, we could definitely try. She does not want to chemotherapy if this is not "curable." Her had questions regarding "herbal therapy." She is not interesting to receive any chemotherapy. I explained that the prognosis for life expectancy is just a few weeks. I have suggested to consider hospice care and comfort care. They will think about it. <ELECTRONICALLY SIGNED> By: Jyotsna Berumen MD 09/12/19 0858 [id number] 1953Jyotsna Berumen MD /nt
== END 2019-09-12 10:08 | DRG 180 ==
LOC: M.ERS 21:04 → M.TBA-ER 23:49 → M.2W 23:49 → M.ICU 09-10 11:24
PROVIDERS: Emergency Medicine; Family Medicine; Internal Medicine Critical Care Medicine; ADMIT Internal Medicine; ATTEND Internal Medicine
PROC: 5A09357 Assistance with Respiratory Ventilation, Less than 24 Consecutive Hours, Continuous Positive Airway Pressure (ICD-10-PCS; principal; 2019-09-02)
PROC: 0W993ZZ Drainage of Right Pleural Cavity, Percutaneous Approach (ICD-10-PCS; principal; 2019-09-02)
PROC: 5A09357 Assistance with Respiratory Ventilation, Less than 24 Consecutive Hours, Continuous Positive Airway Pressure (ICD-10-PCS; 2019-09-03)
PROC: 0FB23ZX Excision of Left Lobe Liver, Percutaneous Approach, Diagnostic (ICD-10-PCS; 2019-09-09)
PROC: 5A09357 Assistance with Respiratory Ventilation, Less than 24 Consecutive Hours, Continuous Positive Airway Pressure (ICD-10-PCS; 2019-09-10)
PROC: 0W993ZZ Drainage of Right Pleural Cavity, Percutaneous Approach (ICD-10-PCS; 2019-09-10)
PROC: 0W9930Z Drainage of Right Pleural Cavity with Drainage Device, Percutaneous Approach (ICD-10-PCS; 2019-09-10)
PROC: 5A09357 Assistance with Respiratory Ventilation, Less than 24 Consecutive Hours, Continuous Positive Airway Pressure (ICD-10-PCS; 2019-09-11)
DX: C34.90 Malignant neoplasm of unspecified part of unspecified bronchus or lung (principal); J98.59 Other diseases of mediastinum, not elsewhere classified; J96.22 Acute and chronic respiratory failure with hypercapnia; K85.90 Acute pancreatitis without necrosis or infection, unspecified; E43 Unspecified severe protein-calorie malnutrition; J96.21 Acute and chronic respiratory failure with hypoxia; E87.1 Hypo-osmolality and hyponatremia; I42.9 Cardiomyopathy, unspecified; J44.1 Chronic obstructive pulmonary disease with (acute) exacerbation; J91.8 Pleural effusion in other conditions classified elsewhere; J93.9 Pneumothorax, unspecified; E27.40 Unspecified adrenocortical insufficiency; I50.9 Heart failure, unspecified; E07.9 Disorder of thyroid, unspecified; R00.0 Tachycardia, unspecified; R59.9 Enlarged lymph nodes, unspecified; E87.5 Hyperkalemia; K56.41 Fecal impaction; Z88.6 Allergy status to analgesic agent; Z88.8 Allergy status to other drugs, medicaments and biological substances; Z87.891 Personal history of nicotine dependence; Z82.49 Family history of ischemic heart disease and other diseases of the circulatory system; Z99.81 Dependence on supplemental oxygen; Z20.828 Contact with and (suspected) exposure to other viral communicable diseases; Z51.5 Encounter for palliative care